=== PATIENT | female | born 1980 | race Caucasian/White ===

== ENCOUNTER 2021-05-21 11:40 | Outpatient (CLI) | payer BC ==
--- NOTE | 2021-05-21 17:29 | XRAY Report ---
PROCEDURE: Ankle 3 View RT INDICATIONS: SPRAIN OF R ANKLE TECHNIQUE: 3 views of the ankle were acquired. COMPARISON: None FINDINGS: Bones: No fractures or dislocations. Ankle mortise is normally aligned. No suspicious bony lesions . Large plantar calcaneal bone spur. Soft tissues: No tibiotalar joint effusion. Achilles tendon appears normal. IMPRESSION: No fracture. No acute osseous lesion. If there are persistent symptoms or continued clinical concern for pathology, then repeat plain film radiographs (7-10 days) or advanced imaging (CT, MR, bone scan) should be considered for further evaluation. Reviewed by: Elsi Soto MD, PhD on 05/21/2021 5:28 PM PDT Approved by: Elsi Soto MD, PhD on 05/21/2021 5:28 PM PDT Station ID: [id number]
== END 2021-05-21 23:59 | disposition home or self-care (01) ==
LOC: DI.N 11:40
PROVIDERS: ATTEND Physician Assistant Medical
DX: S93.421A Sprain of deltoid ligament of right ankle, initial encounter (principal)